=== PATIENT | male | born 1985 | race American Indian/Alaskan Native ===

== ENCOUNTER 2016-09-01 16:21 | Emergency (ER) | payer SELFPAY | END 2016-09-01 17:20 | disposition left against medical advice (07) | LOC: ED 16:21 | DX: R03.0 Elevated blood-pressure reading, without diagnosis of hypertension (principal); Z53.21 Procedure and treatment not carried out due to patient leaving prior to being seen by health care provider ==

== ENCOUNTER 2018-07-29 06:03 | Day surgery (SDC) | payer MEDICARE ==
[~2018-07-29 06:03] MED LIST: ANCEF/STERILE WATER 2 GM/20 ML 2 GM/20 ML SYRINGE IV NR; NACL 0.9% 1000 ML 1,000 ML IV SCH
[2018-07-29] MEDS ORDERED: ANCEF/STERILE WATER 2 GM/20 ML IV NR (07:00)
[2018-07-29] MEDS ORDERED: NACL 0.9% 1000 ML 1,000 ML IV SCH (07:00)
[2018-07-29] MEDS ORDERED: VERSED ONE ×2 (07:20→07:37)
[2018-07-29] MEDS ORDERED: MARCAINE 0.5% INFILTRATI ONE ×2 (07:23→09:08)
[2018-07-29] MEDS ORDERED: XYLOCAINE 1%/ EPI 1:100,000 INFILTRATI ONE (07:24)
[2018-07-29] MEDS ORDERED: NACL 0.9% 500 ML 500 ML ONE (07:24)
[2018-07-29] MEDS ORDERED: PROTAMINE SULFATE ONE (07:24)
[2018-07-29] MEDS ORDERED: HEPARIN 10,000 UNITS/10 ML ONE (07:25)
[2018-07-29] MEDS ORDERED: SODIUM BICARBONATE ONE (07:25)
[2018-07-29] MEDS ORDERED: DILAUDID IV PRN (07:30)
[2018-07-29] MEDS ORDERED: Vasostrict ONE (07:30)
--- NOTE | 2018-07-29 07:30 | Anesthesia Day of Surgery ---
Anesthesia Day of Surgery - Day of Surgery Patient Examined: Yes Patient H&P Reviewed: Yes Patient is NPO: Yes Beta Blockers: No Cardiac Clearance: No Pulmonary Clearance: No Vic's Test: N/A
--- NOTE | 2018-07-29 07:30 | Anesthesia Consultation ---
Anesthesia Consult and Med Hx Date of service: 07/29/18 - Airway Anesthetic Teeth Evaluation: Good ROM Head & Neck: Adequate Mental/Hyoid Distance: Adequate Mallampati Class: Class II Intubation Access Assessment: Probably Good - Pulmonary Exam CTA: Yes - Cardiac Exam Cardiac Exam: RRR - Pre-Operative Health Status ASA Pre-Surgery Classification: ASA4 Proposed Anesthetic Plan: General - Pulmonary Hx Smoking: Yes - Cardiovascular System Hx Hypertension: Yes (diagnosed 06/2017 for HTN) - Central Nervous System Hx Psychiatric Problems: No - Endocrine Hx Renal Disease: No Hx End Stage Renal Disease: Yes - Hematic Hx Anemia: No Hx Sickle Cell Disease: No - Other Systems Hx Cancer: No
[2018-07-29] MEDS ORDERED: SUBLIMAZE ONE (07:37)
[2018-07-29] MEDS ORDERED: DIPRIVAN 10 MG/ML IV ONE (07:37)
[2018-07-29] MEDS ORDERED: XYLOCAINE MPF 2% ONE (07:38)
[2018-07-29] MEDS ORDERED: ROBINUL ONE (07:38)
[2018-07-29] MEDS ORDERED: QUELICIN ONE (07:38)
[2018-07-29] MEDS ORDERED: NEO SYNEPHRINE/NS Syringe(OR USE) IV ONE (07:38)
[2018-07-29] MEDS ORDERED: VERSED IV NR (08:00)
[2018-07-29] MEDS ORDERED: NACL 0.9% 500 ML IRRIGATION ONE (09:09)
[2018-07-29] MEDS ORDERED: NACL 0.9% IR ONE (09:09)
--- NOTE | 2018-07-29 10:39 | Operative Report ---
Operative Report Operative Report: Operative note: Date: 07/29/2018 Preoperative diagnosis: ESRD Postoperative diagnosis: Same. Operation: creation of left Maude AV fistula Surgeon: Charity Gao. Asst.: none Anesthesia: Gen. EBL: Minimal Findings: Large distal cephalic vein and patent radial artery without calcifications Indications: 32-year-old male with end-stage renal disease on hemodialysis via right IJ PermCath came for creation of permanent access. He is preoperative imaging showed questionable cephalic vein. Patient was discussed risks, benefits and alternatives of creation of permanent access. He understood and signed informed consent. Operative details: The ultrasound was performed identifying cephalic vein. It was compressible is good size throughout its length from the wrist level. Incision was made between the distal part of cephalic vein and radial artery. Initially we dissected around cephalic vein mobilizing, then dissected the radial artery. Cephalic vein was transected distally and was likely this sterile silk. It was irrigated with heparinized saline with olive-tipped syringe. Patient was heparinozed. Distal and proximal control for radial artery was gained using vessel loops. Arteriotomy was created with 11 blade and extended with Dunn scissors. Anastomosis was created was running 6-0 Prolene. When the artery was clamped was identified with arterial pulse and thrill in the cephalic vein. Hemostasis was achieved with electrocautery and wound was closed in 2 layers with 3-0 Vicryl and 4-0 Monocryl. Dermabond glue applied. Needle and sponge counts were correct 2. Patient tolerated procedure well and was transferred to PACU in stable condition.
[2018-07-29] MEDS ORDERED: APRESOLINE ONE (10:48)
--- NOTE | 2018-07-29 10:56 | Short Stay Summary ---
Short Stay Documentation Date of service: 07/29/18 - History H&P: obtained from office - Allergies and Medications Current Medications: Allergies shrimp Allergy (Verified 07/26/18 16:31) Angioedema Home Medications Medication Instructions Recorded Confirmed Last Taken Type Carvedilol [Coreg] 25 mg PO BID #60 tablet 03/25/18 07/29/18 07/29/18 05:00 Rx amLODIPine [Norvasc] 10 mg PO QDAY #30 tablet 03/25/18 07/29/18 07/28/18 21:00 Rx cloNIDine [Catapres] 0.3 mg PO TID #90 tablet 03/25/18 07/29/18 07/29/18 05:00 Rx hydrALAZINE [Apresoline TAB] 100 mg PO TID #90 tab 03/25/18 07/29/18 07/29/18 05:00 Rx Active Medications Hydromorphone HCl (Dilaudid) 0.25 mg IV Q10MIN PRN PRN Reason: Pain, Moderate (4-6) Stop: 07/29/18 16:00 Sodium Chloride (Nacl 0.9% 1000 Ml) 1,000 mls @ 75 mls/hr IV DIRECT BRADY Last Admin: 07/29/18 06:50 Dose: 75 mls/hr Documented by: Midazolam HCl (Versed) 2 mg IV PREOP NR Stop: 07/29/18 23:59 Last Admin: 07/29/18 08:12 Dose: 2 mg Documented by: - Brief post op/procedure progress note Date of procedure: 07/29/18 Pre-op diagnosis: ESRD Post-op diagnosis: same Procedure: creation of left daphnie AVF Anesthesia: GETA Findings: patent radial artery Surgeon: VERO PEREZ Estimated blood loss: minimal Pathology: none Condition: stable - Disposition Condition at discharge: Good Disposition: DC-01 TO HOME OR SELFCARE Short Stay Discharge Plan Diet: renal Wound: open to air Special Instructions: no heavy lifting Follow up with: PRIMARY CAREMD [Primary Care Provider] - 7 Days VERO PEREZ DO [Staff Physician] - 14 Days Prescriptions: Acetaminophen/Codeine [Tylenol /Codeine # 3 tab] 1 tab PO Q4HR PRN #30 tablet PRN Reason: Pain
[2018-07-29 12:11] VITALS: BP 154/95
== END 2018-07-29 13:05 | disposition home or self-care (01) ==
LOC: OR 06:03
PROVIDERS: ATTEND Surgery Vascular Surgery
DX: I12.0 Hypertensive chronic kidney disease with stage 5 chronic kidney disease or end stage renal disease (principal); N18.6 End stage renal disease; K21.9 Gastro-esophageal reflux disease without esophagitis; F17.210 Nicotine dependence, cigarettes, uncomplicated; Z99.2 Dependence on renal dialysis; Z79.01 Long term (current) use of anticoagulants; Z98.890 Other specified postprocedural states; Z79.899 Other long term (current) drug therapy; Z88.8 Allergy status to other drugs, medicaments and biological substances
CPT/HCPCS: 36821; 82803; J0330; J0360; J0690; J1644; J2250; J2370; J2704; J3010; J7030; J7040; J2720

== ENCOUNTER 2018-12-24 13:19 | Emergency (ER) | payer MEDICARE ==
[2018-12-24 14:41] VITALS: BP 155/109
--- NOTE | 2018-12-24 14:42 | Emergency Department Report ---
Chief Complaint: Dental/Oral Stated Complaint: ABCESS Time Seen by Provider: 12/24/18 14:38 - HPI History of Present Illness: This is a 33-year-old male that presents to the ER with dental pain and left sided facial swelling since waking. Patient reports dental pain intermittently for weeks. He left dialysis today with only 2 hours of treatment because he couldn't tolerate pain. - Exam Vital Signs: Vital Signs 12/24/18 14:39 Temperature 98.5 F Pulse Rate 88 Respiratory 16 Rate Blood Pressure 155/109 [Left] O2 Sat by Pulse 96 Oximetry MSE screening note: Focused history and physical exam performed. Due to findings the following was ordered: ED Disposition for MSE Condition: Stable Referrals: KELBY CROWDER MD [Primary Care Provider] - 3-5 Days
--- NOTE | 2018-12-24 15:28 | Emergency Department Report ---
ED ENT HPI - General Chief complaint: Dental/Oral Stated complaint: ABCESS Time Seen by Provider: 12/24/18 14:38 Source: patient Mode of arrival: Ambulatory Limitations: No Limitations - History of Present Illness Initial comments: Patient is a 33-year-old [place] male with a past medical history of hypertension who is presenting with 2 days of left-sided facial swelling. Patient states he does have poor dentition and believes that tooth #16 may be the reason why he's having pain. Patient states he has swelling to the face pain is 6 out of 10 in severity and throbbing and aching. Patient denies any fevers chills nausea or vomiting. - Related Data Previous Rx's Medication Instructions Recorded Last Taken Type Carvedilol [Coreg] 25 mg PO BID #60 tablet 03/25/18 07/29/18 05:00 Rx amLODIPine [Norvasc] 10 mg PO QDAY #30 tablet 03/25/18 07/28/18 21:00 Rx cloNIDine [Catapres] 0.3 mg PO TID #90 tablet 03/25/18 07/29/18 05:00 Rx hydrALAZINE [Apresoline TAB] 100 mg PO TID #90 tab 03/25/18 07/29/18 05:00 Rx Acetaminophen/Codeine [Tylenol 1 tab PO Q4HR PRN #30 tablet 07/29/18 Unknown Rx /Codeine # 3 tab] Clindamycin [Clindamycin CAP] 300 mg PO Q8H #21 cap 12/24/18 Unknown Rx HYDROcodone/APAP 5-325 [[place] 1 each PO Q6HR PRN #14 tablet 12/24/18 Unknown Rx 5/325] Ibuprofen [Motrin 600 MG tab] 600 mg PO Q8H PRN #20 tablet 12/24/18 Unknown Rx Allergies Allergy/AdvReac Type Severity Reaction Status Date / Time shrimp Allergy Angioedema Verified 07/26/18 16:31 ED Dental HPI - General Chief complaint: Dental/Oral Stated complaint: ABCESS Time Seen by Provider: 12/24/18 14:38 Source: patient Mode of arrival: Ambulatory Limitations: No Limitations - Related Data Previous Rx's Medication Instructions Recorded Last Taken Type Carvedilol [Coreg] 25 mg PO BID #60 tablet 03/25/18 07/29/18 05:00 Rx amLODIPine [Norvasc] 10 mg PO QDAY #30 tablet 03/25/18 07/28/18 21:00 Rx cloNIDine [Catapres] 0.3 mg PO TID #90 tablet 03/25/18 07/29/18 05:00 Rx hydrALAZINE [Apresoline TAB] 100 mg PO TID #90 tab 03/25/18 07/29/18 05:00 Rx Acetaminophen/Codeine [Tylenol 1 tab PO Q4HR PRN #30 tablet 07/29/18 Unknown Rx /Codeine # 3 tab] Clindamycin [Clindamycin CAP] 300 mg PO Q8H #21 cap 12/24/18 Unknown Rx HYDROcodone/APAP 5-325 [[place] 1 each PO Q6HR PRN #14 tablet 12/24/18 Unknown Rx 5/325] Ibuprofen [Motrin 600 MG tab] 600 mg PO Q8H PRN #20 tablet 12/24/18 Unknown Rx Allergies Allergy/AdvReac Type Severity Reaction Status Date / Time shrimp Allergy Angioedema Verified 07/26/18 16:31 ED Review of Systems ROS: Stated complaint: ABCESS Other details as noted in HPI Comment: All other systems reviewed and negative ED Past Medical Hx - Past Medical History Previous Medical History?: Yes Hx Hypertension: Yes (diagnosed 06/2017 for HTN) Hx GERD: Yes Hx Renal Disease: No Hx Sickle Cell Disease: No Hx Headaches / Migraines: Yes Hx HIV: No - Surgical History Past Surgical History?: Yes Hx Open Heart Surgery: No Hx Cholecystectomy: No Hx Appendectomy: No Hx Breast Surgery: No Additional Surgical History: ANKLE TESTICLES SURGERY - Social History Smoking Status: Never Smoker Substance Use Type: None - Medications Home Medications: Home Medications Medication Instructions Recorded Confirmed Last Taken Type Carvedilol [Coreg] 25 mg PO BID #60 tablet 03/25/18 07/29/18 07/29/18 05:00 Rx amLODIPine [Norvasc] 10 mg PO QDAY #30 tablet 03/25/18 07/29/18 07/28/18 21:00 Rx cloNIDine [Catapres] 0.3 mg PO TID #90 tablet 03/25/18 07/29/18 07/29/18 05:00 Rx hydrALAZINE [Apresoline TAB] 100 mg PO TID #90 tab 03/25/18 07/29/18 07/29/18 05:00 Rx Acetaminophen/Codeine [Tylenol 1 tab PO Q4HR PRN #30 tablet 07/29/18 Unknown Rx /Codeine # 3 tab] Clindamycin [Clindamycin CAP] 300 mg PO Q8H #21 cap 12/24/18 Unknown Rx HYDROcodone/APAP 5-325 [[place] 1 each PO Q6HR PRN #14 tablet 12/24/18 Unknown Rx 5/325] Ibuprofen [Motrin 600 MG tab] 600 mg PO Q8H PRN #20 tablet 12/24/18 Unknown Rx ED Physical Exam - General Limitations: No Limitations General appearance: alert, in no apparent distress - Head Head exam: Present: atraumatic, normocephalic - Expanded Head Exam Expanded 1 - facial swelling with skin induration - Eye Eye exam: Present: normal appearance, PERRL, EOMI - ENT ENT exam: Present: mucous membranes moist - Expanded ENT Exam Expanded Teeth exam: Present: fractured tooth # (16) - Respiratory Respiratory exam: Absent: respiratory distress - Neurological Exam Neurological exam: Present: alert, oriented X3 ED Course Vital Signs 12/24/18 14:39 Temperature 98.5 F Pulse Rate 88 Respiratory 16 Rate Blood Pressure 155/109 [Left] O2 Sat by Pulse 96 Oximetry ED Medical Decision Making - Medical Decision Making Patient with history of dental caries with pain that is increased in tooth #16 for the last several days. Patient now has some facial swelling consistent with a facial cellulitis. Patient was started on clindamycin and given medication for symptomatic relief. Patient states he has a dental appointment sometime this week. Critical care attestation.: If time is entered above; I have spent that time in minutes in the direct care of this critically ill patient, excluding procedure time. ED Disposition Clinical Impression: Dental abscess, Facial cellulitis Disposition: TO HOME OR SELFCARE Is pt being admited?: No Does the pt Need Aspirin: No Condition: Stable Instructions: Dental Abscess (ED) Referrals: KELBY CROWDER MD [Primary Care Provider] - 3-5 Days Time of Disposition: 15:31
== END 2018-12-24 15:42 | disposition home or self-care (01) ==
LOC: ED 13:19
DX: K04.7 Periapical abscess without sinus (principal); L03.211 Cellulitis of face; I10 Essential (primary) hypertension; K21.9 Gastro-esophageal reflux disease without esophagitis; G43.909 Migraine, unspecified, not intractable, without status migrainosus; Z79.899 Other long term (current) drug therapy; Z91.013 Allergy to seafood; Z79.1 Long term (current) use of non-steroidal anti-inflammatories (NSAID); Z98.890 Other specified postprocedural states
CPT/HCPCS: 99282